=== PATIENT | female | born 1935 | race Caucasian/White ===

== ENCOUNTER 2017-05-04 07:24 | Emergency (ER) | payer MEDICARE ==
[~2017-05-04] VITALS: Ht 157.5 cm; Wt 49.0 kg
[~2017-05-04 07:24] MED LIST: ALLOPURINOL100 MG PO; AMLODIPINE10 MG PO; AMLODIPINE2.5 MG PO; AMLODIPINE5 MG PO; ASPIRIN EC81 MG PO; ASPIRIN325 MG PO; ATACAND HCT1 TA1 PO; BACTROBAN2 % EX; BENADRYL 25MG C25 MG PO; BENICAR40 MG OR; BONIVA150 MG OR; BUMETANIDE1 MG PO; BYSTOLIC10 MG PO; CEPHALEXIN250 MG PO; CLONIDINE0.1 MG PO; CLONIDINE0.2 MG PO; COLCHICINE0.6 MG PO; CRESTOR5 MG OR; DARVOCET-N100 MG OR; ECOTRIN LOW81 MG OR; FOLIC ACID5 MG OR; GABAPENTIN300 MG PO; GLIPIZIDE5 MG OR; HYDRALAZINE25 MG PO; KEFLEX500 MG PO; KLOR-CON 1010 ME1 PO; LANTUS100 MG/ML SC; LASIX 20 MG TAB20 MG PO; LASIX 20 MG20 MG/TAB PO; LASIX 40 MG TAB40 MG PO; LEXAPRO10 MG PO; LEXAPRO5 MG PO; LIPITOR10 M1; LIPITOR10 MG PO; LIPITOR40 MG PO; LISINOPRIL5 MG PO; LOSARTAN POT25 MG PO; LYRICA75 MG PO; MEDDOSEPAK PO; MUPIROCIN2 % EX; NASONEX50 MCG/AC; NEXIUM40 M1 OR; NORVASC OR; NORVASC10 M1 PO; PANTOPRAZOLE SO40 MG PO; PLAVIX75 MG OR; PLAVIX75 MG PO; PREDNISONE10 MG PO; PROTONIX40 M2 PO; SANTYL250 MG/GM EX; SMZ-TMP DS1 TAB PO; SPIRONOLACTONE25 MG PO; TOPROL XL200 MG OR; TRAMADOL HCL50 MG PO; TYLENOL # 31 TA1 PO; TYLENOL325 MG PO; ULORIC40 MG PO; VESICARE5 MG OR; VESICARE5 MG PO; VITAMIN D2 PO; ZEMPLAR2 MCG PO; ZITHROMAX250 MG PO; ZOFRAN4 MG/TAB PO; ZYRTEC10 MG OR; [UNRECOGNIZED DRUG - CODE] OR; [UNRECOGNIZED DRUG - OTHER] EX; [UNRECOGNIZED DRUG - OTHER] PO; allo OR
[2017-05-04] MEDS ORDERED: LANTUS100 UNIT/M PO (07:40)
[2017-05-04 07:55] LABS: HEMATOCRIT 32.7 % (37.0-47.0); HEMOGLOBIN 10.5 g/dl (12.0-16.0); IMMATURE GRANULOCYTES 0.4 % (0.0-1.0); MEAN CELL VOLUME 99.1 fL CALC (80.0-100.0); MEAN CORPUSCULAR HGB 31.8 pG CALC (26.0-32.0); MEAN CORPUSCULAR HGB CONC 32.1 g/L CALC (32.0-36.0); NEUT# 12.14 thou/uL (2.00-7.15); RED BLOOD COUNT 3.3 mill/uL (4.20-5.60); RED CELL DISTRI WIDTH 14.6 % (11.5-15.5)
[2017-05-04 08:15] LABS: PROTHROMBIN TIME 11.3 SECONDS (9.0-12.5)
[2017-05-04 09:03] LABS: ALBUMIN 3.8 g/dL (3.2-5.0); BILIRUBIN, TOTAL 0.7 mg/dL (0.0-1.4); CALCIUM 8.7 mg/dL (8.4-10.2); TOTAL PROTEIN 6.3 g/dL (6.3-8.2)
[2017-05-04 09:18] LABS: CREATININE 5.6 mg/dL (0.5-1.0); POTASSIUM 6.3 mmol/l (3.5-5.1)
[2017-05-04 10:20] VITALS: BP 154/67
[2017-05-04 10:22] LABS: URINE BILIRUBIN - DIPSTICK NEGATIVE (NEGATIVE); URINE BLOOD DIPSTICK NEGATIVE (NEGATIVE); URINE COLOR YELLOW; URINE GLUCOSE - DIPSTICK 500 mg/dL (NEGATIVE); URINE KETONE NEGATIVE (NEGATIVE); URINE LEUK ESTERASE NEGATIVE (Negative); URINE NITRITE - DIPSTICK NEGATIVE (Negative); URINE PH 5.5 (4.5-8.0); URINE PROTEIN - DIPSTICK >=300 mg/dL (NEG-TRACE); URINE SPECIFIC GRAVITY 1.025; URINE UROBILINOGEN - DIPSTICK 0.2 E.U./dL (0.2)
[2017-05-04 10:26] LABS: URINE CLARITY SLIGHT CLOUDY
[2017-05-04 10:27] LABS: URINE EPITHELIAL CELLS MODERATE EPI/hpf (0-FEW); URINE MUCUS MANY hpf (NONE-FEW)
== END 2017-05-04 10:24 | disposition short-term general hospital (02) ==
LOC: ED 07:24
PROVIDERS: Emergency Medicine
PROC: 0T9B70Z Drainage of Bladder with Drainage Device, Via Natural or Artificial Opening (ICD-10-PCS; principal; 2017-05-04)
DX: A41.9 Sepsis, unspecified organism (principal); E13.10 Other specified diabetes mellitus with ketoacidosis without coma; E11.22 Type 2 diabetes mellitus with diabetic chronic kidney disease; I12.0 Hypertensive chronic kidney disease with stage 5 chronic kidney disease or end stage renal disease; N18.6 End stage renal disease; Z99.2 Dependence on renal dialysis; I25.10 Atherosclerotic heart disease of native coronary artery without angina pectoris; J44.9 Chronic obstructive pulmonary disease, unspecified; E87.5 Hyperkalemia; R74.8 Abnormal levels of other serum enzymes; R09.02 Hypoxemia; Z95.5 Presence of coronary angioplasty implant and graft; Z95.1 Presence of aortocoronary bypass graft
CPT/HCPCS: J1956

== ENCOUNTER 2017-11-17 21:58 | Emergency (ER) | payer MEDICARE ==
[~2017-11-17] VITALS: Ht 157.5 cm; Wt 47.7 kg
[~2017-11-17 21:58] MED LIST changes: +LANTUS100 UNIT/M PO
[2017-11-17 22:30] LABS: HEMATOCRIT 42.1 % (37.0-47.0); HEMOGLOBIN 13.7 g/dl (12.0-16.0); IMMATURE GRANULOCYTES 0.5 % (0.0-1.0); MEAN CELL VOLUME 103.7 fL CALC (80.0-100.0); MEAN CORPUSCULAR HGB 33.7 pG CALC (26.0-32.0); MEAN CORPUSCULAR HGB CONC 32.5 g/L CALC (32.0-36.0); NEUT# 14.7 thou/uL (2.00-7.15); RED BLOOD COUNT 4.06 mill/uL (4.20-5.60)
--- NOTE | 2017-11-17 22:39 | NUR ---
RT WAS CALLED WITH BIPAP. MD WANTED IMMEDIATE BIPAP TO PLACE ON PATIENT. SETTING WAS 18/9, RATE 16 WITH 40%. IT WAS WEANED TO BIPAP 10/, RATE 16 WITH 40%. ABG RESULT IS ON [facility]
[2017-11-17 22:40] LABS: INFLUENZA A NONE DETECTED (NONE DETECT); INFLUENZA B NONE DETECTED (NONE DETECT)
[2017-11-17 22:47] LABS: CALCIUM 8.8 mg/dL (8.4-10.2); CREATININE 4.4 mg/dL (0.5-1.0)
[2017-11-18 02:51] VITALS: BP 165/72
== END 2017-11-18 01:50 | disposition short-term general hospital (02) ==
LOC: ED 21:58
PROVIDERS: Family Medicine
DX: J18.9 Pneumonia, unspecified organism (principal); J90 Pleural effusion, not elsewhere classified; R05 Cough; R06.02 Shortness of breath; I10 Essential (primary) hypertension; Z99.2 Dependence on renal dialysis
CPT/HCPCS: J1956

== ENCOUNTER 2018-01-20 19:52 | Emergency (ER) | payer MEDICARE ==
[~2018-01-20] VITALS: Ht 152.4 cm; Wt 44.6 kg
[~2018-01-20 19:52] MED LIST changes: -LANTUS100 UNIT/M PO; +LANTUS100 UNIT/M SC
[2018-01-20 20:57] LABS: HEMATOCRIT 40.8 % (37.0-47.0); HEMOGLOBIN 13.8 g/dl (12.0-16.0); IMMATURE GRANULOCYTES 0.6 % (0.0-1.0); MEAN CELL VOLUME 97.4 fL CALC (80.0-100.0); MEAN CORPUSCULAR HGB 32.9 pG CALC (26.0-32.0); MEAN CORPUSCULAR HGB CONC 33.8 g/L CALC (32.0-36.0); NEUT# 9.15 thou/uL (2.00-7.15); RED BLOOD COUNT 4.19 mill/uL (4.20-5.60); RED CELL DISTRI WIDTH 13.9 % (11.5-15.5)
[2018-01-20 21:15] LABS: ALBUMIN 4.4 g/dL (3.2-5.0); BILIRUBIN, TOTAL 0.9 mg/dL (0.0-1.4); POTASSIUM 4.7 mmol/l (3.5-5.1)
[2018-01-20 21:17] LABS: D-DIMER 0.97 mg/L (0.19-0.60); PROTHROMBIN TIME 11.6 SECONDS (9.0-12.5)
[2018-01-20 21:20] LABS: CREATININE 2.6 mg/dL (0.5-1.0); TOTAL PROTEIN 7.9 g/dL (6.3-8.2)
[2018-01-20 21:45] LABS: TSH, 3RD GENERATION 1.29 uIU/mL (0.47 - 4.68)
[2018-01-20] MEDS ORDERED: LEXAPRO10 MG PO (22:23)
[2018-01-21 00:17] VITALS: BP 178/77
== END 2018-01-21 00:16 | disposition short-term general hospital (02) ==
LOC: ED 19:52
PROVIDERS: Family Medicine
DX: I48.92 Unspecified atrial flutter (principal); E11.9 Type 2 diabetes mellitus without complications; R74.8 Abnormal levels of other serum enzymes; I10 Essential (primary) hypertension

== ENCOUNTER 2018-05-21 10:33 | Emergency (ER) | payer MEDICARE ==
[~2018-05-21] VITALS: Ht 152.4 cm; Wt 40.9 kg
[~2018-05-21 10:33] MED LIST changes: +LIPITOR20 MG PO
[2018-05-21] MEDS ORDERED: FUROSEMIDE40 MG PO (11:15)
[2018-05-21 11:19] LABS: HEMOGLOBIN 13.9 g/dl (12.0-16.0); IMMATURE GRANULOCYTES 0.4 % (0.0-5.0); MEAN CORPUSCULAR HGB CONC 33.8 g/L CALC (32.0-36.0); NEUT# 6.34 thou/uL (2.00-7.15); RED BLOOD COUNT 4.35 mill/uL (4.20-5.60); RED CELL DISTRI WIDTH 13.3 % (11.5-15.5)
[2018-05-21 11:33] LABS: ALBUMIN 4.6 g/dL (3.2-5.0); BILIRUBIN, TOTAL 1.1 mg/dL (0.0-1.4); POTASSIUM 4.8 mmol/l (3.5-5.1); TOTAL PROTEIN 7.7 g/dL (6.3-8.2)
[2018-05-21 11:39] LABS: CREATININE 1.5 mg/dL (0.5-1.0)
[2018-05-21] MEDS ORDERED: IMODIUM2 MG PO (11:39)
[2018-05-21] MEDS ORDERED: ALLERGY NA50 MCG/ACT NAB (11:40)
[2018-05-21 11:52] LABS: HEMATOCRIT 41.1 % (37.0-47.0); MEAN CELL VOLUME 94.5 fL CALC (80.0-100.0)
[2018-05-21 15:03] VITALS: BP 188/85
== END 2018-05-21 15:04 | disposition short-term general hospital (02) ==
LOC: ED 10:33
PROVIDERS: Family Medicine
DX: I21.4 Non-ST elevation (NSTEMI) myocardial infarction (principal); K59.00 Constipation, unspecified; E11.22 Type 2 diabetes mellitus with diabetic chronic kidney disease; I12.0 Hypertensive chronic kidney disease with stage 5 chronic kidney disease or end stage renal disease; N18.6 End stage renal disease; Z99.2 Dependence on renal dialysis; R51 Headache